=== PATIENT | male | born 1995 | race Hispanic/Latino ===

== ENCOUNTER 2018-07-22 17:17 | Emergency (ER) | payer MEDICAID, OTHER ==
[2018-07-22 17:24] VITALS: O2SAT 99; BMI 21.6
[2018-07-22] MEDS ORDERED: Lidocaine 5% Patch TD STA (17:47)
[2018-07-22] MEDS ORDERED: Naproxen 550 mg Tab PO STA (17:47)
--- NOTE | 2018-07-22 17:52 | ED PDOC ---
Arrival/HPI - General Time Seen by Provider: 07/22/18 17:38 Historian: Patient - History of Present Illness Narrative History of Present Illness (Text): 07/22/18 17:49 22-year-old male presents the emergency room complaining of right shoulder pain which started 4 days ago after he played basketball. Patient states that he played a full game and the pain started afterwards, reports no trauma or injury to his shoulder during the game. Otherwise reports pain with range of motion, denies any numbness, fever, other joint pain, has no additional complaints. Family/Social History Family/Social History: No Known Family HX Allergies/Home Meds Allergies/Adverse Reactions: Allergies No Known Allergies Allergy (Verified 07/22/18 17:47) Review of Systems - Review of Systems Constitutional: absent: Fatigue, Fevers Respiratory: absent: SOB, Cough Cardiovascular: absent: Chest Pain, Palpitations Musculoskeletal: Arthralgias, Joint Swelling. absent: Back Pain, Neck Pain Skin: absent: Rash, Skin Lesions Neurological: absent: Headache, Dizziness Physical Exam Vital Signs Temp Pulse Resp BP Pulse Ox 07/22/18 17:20 98.6 F 82 18 116/69 99 Temperature: Afebrile Blood Pressure: Normal Pulse: Regular Respiratory Rate: Normal Appearance: Positive for: Well-Appearing, Non-Toxic, Comfortable Pain Distress: Moderate Mental Status: Positive for: Alert and Oriented X 3 - Systems Exam Head: Present: Atraumatic, Normocephalic Neck: Present: Normal Range of Motion Upper Extremity: Present: NORMAL PULSES, Tenderness (+tenderness with mild swelling to the R shoulder), Neurovascularly Intact, Capillary Refill < 2s, Norm 2-Pt Discrimination. No: Erythema, Temperature Abnormalties, Deformity Neurological: Present: GCS=15, CN II-XII Intact, Speech Normal, Motor Func Grossly Intact, Normal Sensory Function Skin: Present: Warm, Dry, Normal Color. No: Rashes Psychiatric: Present: Alert, Oriented x 3, Normal Insight, Normal Concentration Medical Decision Making ED Course and Treatment: 07/22/18 17:51 Plan : - XR R shoulder - Naprosyn PO - Lidoderm patch XR R shoulder : No fracture or dislocation. Periarticular calcification may represent calcific tendinitis in the appropriate clinical setting. Dictated by Dr. Edwar Baeza. On reevaluation, patient remains awake alert and oriented 3 in no acute distress. XR results and diagnosis of tendinitis d/w the patient, sling applied, advised to apply ice to the shoulder. Advised to follow up with the clinic or ortho referral provided in 1-2 days without fail. Advised to take medication as prescribed. Return to the emergency room at any time for any new or worsening symptoms. Patient states he fully agrees with and understands discharge instructions. States that he agrees with the plan and disposition. Verbalized and repeated discharge instructions and plan. I have given the patient opportunity to ask any additional questions. - RAD Interpretation Radiology Orders: 07/22/18 17:47 SHOULDER RIGHT [RAD] Stat - Medication Orders Current Medication Orders: Discontinued Medications Lidocaine (Lidoderm) 1 ea TD STAT STA Stop: 07/22/18 17:48 Naproxen (Anaprox Ds) 550 mg PO ONCE STA Stop: 07/22/18 17:48 - PA / [employer] / Resident Statement MD/DO has reviewed & agrees with the documentation as recorded. Disposition/Present on Arrival - Present on Arrival Any Indicators Present on Arrival: No History of DVT/PE: No History of Uncontrolled Diabetes: No Urinary Catheter: No History of Decub. Ulcer: No - Disposition Have Diagnosis and Disposition been Completed?: Yes Diagnosis: Tendinitis of right shoulder Disposition: HOME/ ROUTINE Disposition Time: 19:00 Patient Plan: Discharge Patient Problems: Current Active Problems Problem Status Onset Tendinitis of right shoulder Acute Condition: STABLE Additional Instructions: Thank you for letting us take care of you today. You were treated for right shoulder tendinitis. The emergency medical care you received today was directed at your acute symptoms. Rest, ice your shoulder. If you were prescribed any med ication, please fill it and take as directed. It may take several days for your symptoms to resolve. Return to the Emergency Department if your symptoms worsen, do not improve, or if you have any other problems. Please contact the clinic in 2 days for re-evaluation and follow up / or call one of the physicians/clinics you have been referred to that are listed on the Patient Visit Information form that is included in your discharge packet. Bring any paperwork you were given at discharge with you along with any medications you are taking to your follow up visit. Our treatment cannot replace ongoing medical care by a primary care provider (PCP) outside of the emergency department. Thank you for allowing the [facility] team to be part of your care today. If you had an X-Ray : A Radiologist will review the ED reading if any change in treatment is needed we will contact you. Prescriptions: Naproxen 500 mg PO BID #30 tab Referrals: PCP,NO [Primary Care Provider] - Follow up with primary [facility] [place], [place] [Outside] - Follow up with primary Mac St MD [Staff Provider] - Follow up with primary Forms: WORK NOTE
--- NOTE | 2018-07-22 18:39 | RAD ---
Date of service: 07/22/2018 PROCEDURE: Radiographs of the Right Shoulder HISTORY: pain COMPARISON: No prior. TECHNIQUE: 3 views obtained. FINDINGS: BONES: Bone alignment and mineralization are normal. There is no acute displaced fracture or bone destruction. JOINTS: Normal. Glenohumeral and acromioclavicular joints preserved. No osteoarthritis. SOFT TISSUES: There is lobular and curvilinear calcification overlying the humeral head. OTHER FINDINGS: None. IMPRESSION: No acute fracture or dislocation. Periarticular calcification may represent calcific tendinitis in the appropriate clinical setting.
[2018-07-22 19:33] VITALS: BP 118/70; PULSE 76; RESP 16; TEMP 98.4
== END 2018-07-22 19:32 | disposition home or self-care (01) ==
LOC: ED 17:17 → MERGE 17:17 → ED 19:32
DX: M75.91 Shoulder lesion, unspecified, right shoulder (principal)